=== PATIENT | female | born 1995 | race Caucasian/White ===

== ENCOUNTER 2019-11-02 09:58 | Emergency (ER) | payer SELFPAY ==
[2019-11-02] MEDS ORDERED: Bacitracin Oint 1 GM U/D Packet TOP ONE (10:21)
[2019-11-02] MEDS ORDERED: Lidocaine 1% 10 ML MDV INJECT ONE (10:21)
--- NOTE | 2019-11-02 10:21 | EDM.PDOC ---
ED HPI GENERAL MEDICAL PROBLEM - General Chief Complaint: Upper Extremity Injury/Pain Stated Complaint: RT HAND INJURY;FINGERS Time Seen by Provider: 11/02/19 10:09 Source of Information: Reports: Patient History Limitations: Reports: No Limitations - History of Present Illness INITIAL COMMENTS - FREE TEXT/NARRATIVE: HISTORY AND PHYSICAL: History of present illness: Patient is a 23-year-old female who presents to the emergency room with complaints of a laceration across her right hand of the second, third and fourth digits. She states last evening she was washing dishes around 10pm and a steak knife had cut her fingers. She "wrapped them up" but did not look at the extent of the laceration. This morning she was encouraged to come to the emergency room as she did have adipose tissue exposed and concerned she needs sutures. Tdap is UTD. Review of systems: As per history of present illness and below otherwise all systems reviewed and negative. Past medical history: As per history of present illness and as reviewed below otherwise noncontributory. Surgical history: As per history of present illness and as reviewed below otherwise noncontributory. Social history: See social history for further information Family history: As per history of present illness and as reviewed below otherwise noncontributory. Physical exam: General: Well-developed and well-nourished 23-year-old female. Alert and oriented. Nontoxic-appearing and in no acute distress. HEENT: Atraumatic, normocephalic, pupils equal and reactive bilaterally, negative for conjunctival pallor or scleral icterus, mucous membranes moist, TMs normal bilaterally, throat clear, neck supple, nontender, trachea midline. No drooling or trismus noted. No meningeal signs. No hot potato voice noted. Lungs: Clear to auscultation, breath sounds equal bilaterally, chest nontender. Heart: S1S2, regular rate and rhythm without overt murmur Abdomen: Soft, nondistended, nontender. Negative for masses or hepatosplenomegaly. Negative for costovertebral tenderness. Pelvis: Stable nontender. Skin/Extremity: 2.5 cm across the MIP joint of right 2nd digit with exposed adipose tissue. Unable to flex the finger downward fully; suspected tendon injury. 1.5 cm laceration across the left 3rd digit with partial adipose tissue exposure, good flexion and extension of the finger. 1 cm laceration across the medial 4th digit Remaining skin is intact, warm, dry. No lesions or rashes noted. Strong radial pulses with good cap refill. Neurovascular unremarkable. Neuro: Awake, alert, oriented. Cranial nerves II through XII unremarkable. Cerebellum unremarkable. Motor and sensory unremarkable throughout. Exam nonfocal. Notes: Patient states that she was doing dishes around 10-12 PM last night. Lacerations does appear older, typically do not close these but due to deepth and severity of lacerations they were thoroughly irrigated to ensure there are clean. 1% lidocaine was used to anesthetize the area. Chlorahexadin and thorough irrigation was completed. Usual and customary procedures were followed for suture placement. 4-0 nylon, #6 interrupted sutures were placed on the second digit, #2 interrupted sutures placed on third digit. Wound care/ bacitracin placed on the fourth digit. Patient's tetanus is up-to-date. Fiberglass splint was applied from fingertip to below wrist in a neutral position. Dr Moy, Hand Surgeon on-call at [facility] in [place], was consulted on this case. He is aware of the patient's case and will see the patient today in his office today at 3:30 PM or be seen on Thursday. The option was given to the patient for either appointment, they would like to follow-up today. We did call and give patient information to their office. Patient was given follow-up information. Supportive care measures were reviewed and discussed. Voices understanding and is agreeable to plan of care. Denies any further questions or concerns at this time. Diagnostics: None Therapeutics: Lidocaine, Bacitracin, dressing, splint Prescription: Keflex Tramadol Impression: Flexor Tendon Injury Laceration Plan: 1. Keep the area clean and dry. 2. Tylenol and/or ibuprofen as needed for pain management. 3. Please follow-up with Hand Surgeon, Dr Moy at [facility] today at 3:30pm. 4. Return to the ED as needed and as discussed. Definitive disposition and diagnosis as appropriate pending reevaluation and review of above. laceration to index, middle & ring finger Pain Score (Numeric/FACES): 10 - Related Data Allergies Allergy/AdvReac Type Severity Reaction Status Date / Time No Known Allergies Allergy Verified 11/02/19 10:16 Home Meds: Home Meds . [No Known Home Meds] 11/02/19 [History] Past Medical History - Past Health History Medical/Surgical History: Denies Medical/Surgical History Social & Family History - Family History Endocrine/Metabolic: Reports: Diabetes, Type I - Tobacco Use Smoking Status *Q: Never Smoker - Recreational Drug Use Recreational Drug Use: No Review of Systems - Review of Systems Review Of Systems: Comprehensive ROS is negative, except as noted in HPI. ED EXAM, GENERAL - Physical Exam Exam: See Below (See dictation) ED TRAUMA EXTREMITY PROCEDURES - Laceration/Wound Repair right 2nd digit Lac/Wound Length In cm: 2.5 Appearance: Subcutaneous, Irregular, Mildly Contaminated Distal NVT: Neuro & Vascular Intact, Other (Suspected tendon injury: Dr Moy to follow-up) Anesthetic Type: Local Local Anesthesia - Lidocaine (Xylocaine): 1% Plain Local Anesthetic Volume: 3cc Skin Prep: Chlorhexidine (Hibiciens), Saline, Sterile Drape Exploration/Debridement/Repair: Wound Explored, In a Bloodless Field, Explored to Base, No Foreign Material Found Closed With: Sutures Suture Size: 4-0 (6) Suture Type: Nylon Drain Placement: No Sterile Dressing Applied: Provider Tetanus Status Addressed: Yes Complications: No Progress/Comments: Going to hand surgeon in [facility] for further care/management right 3rd digit Lac/Wound Length In cm: 1.5 Appearance: Subcutaneous, Linear, Irregular, Mildly Contaminated Distal NVT: Neuro & Vascular Intact, No Tendon Injury Anesthetic Type: Local Local Anesthesia - Lidocaine (Xylocaine): 1% Plain Local Anesthetic Volume: 2cc Skin Prep: Chlorhexidine (Hibiciens), Saline, Sterile Drape Exploration/Debridement/Repair: Wound Explored, In a Bloodless Field, Explored to Base, No Foreign Material Found Suture Size: 4-0 # of Sutures: 2 Suture Type: Nylon Drain Placement: No Sterile Dressing Applied: Provider Tetanus Status Addressed: Yes Complications: No 4th digit right Lac/Wound Length In cm: 1 Appearance: Superficial, Linear Distal NVT: Neuro & Vascular Intact, No Tendon Injury Skin Prep: Chlorhexidine (Hibiciens), Saline Closed With: Steri-Strips Course - Vital Signs Last Recorded V/S: Last Vital Signs Temp 97.2 F 11/02/19 10:12 Pulse 88 11/02/19 10:12 Resp 18 11/02/19 10:12 BP 104/68 11/02/19 10:12 Pulse Ox 98 11/02/19 10:12 - Orders/Labs/Meds Orders: Active Orders 24 hr Category Date Time Status DME for Discharge [COMM] Stat Oth 11/02/19 11:40 Ordered Meds: Medications Discontinued Medications Generic Name Dose Route Start Last Admin Trade Name Scott PRN Reason Stop Dose Admin Bacitracin 1 dose 11/02/19 10:21 11/02/19 11:38 Bacitracin Oint 1 Gm TOP 11/02/19 10:22 1 dose ONETIME ONE Administration Lidocaine HCl 10 ml 11/02/19 10:21 11/02/19 10:30 Xylocaine 1% INJECT 11/02/19 10:22 Not Given ONETIME ONE Lidocaine HCl Confirm 11/02/19 10:28 11/02/19 10:31 Xylocaine-Mpf 1% Administered 11/02/19 10:29 Not Given Dose 10 ml .ROUTE .STK-MED ONE Lidocaine HCl 10 ml 11/02/19 10:30 11/02/19 11:38 Xylocaine-Mpf 1% INJECT 11/02/19 10:31 10 ml ONETIME ONE Administration Departure - Departure Time of Disposition: 11:11 Disposition: Home, Self-Care 01 Clinical Impression: Laceration Finger, open wounds with tendon injury Qualifiers: Encounter type: initial encounter Qualified Code(s): S61.209A - Unspecified open wound of unspecified finger without damage to nail, initial encounter - Discharge Information Instructions: Laceration Care, Adult, Wound Care, Adult Referrals: PCP,None [Primary Care Provider] - Forms: ED Department Discharge Additional Instructions: The following information is given to patients seen in the emergency department who are being discharged to home. This information is to outline your options for follow-up care. We provide all patients seen in our emergency department with a follow-up referral. The need for follow-up, as well as the timing and circumstances, are variable depending upon the specifics of your emergency department visit. If you don't have a primary care physician on staff, we will provide you with a referral. We always advise you to contact your personal physician following an emergency department visit to inform them of the circumstance of the visit and for follow-up with them and/or the need for any referrals to a consulting specialist. The emergency department will also refer you to a specialist when appropriate. This referral assures that you have the opportunity for follow-up care with a specialist. All of these measure are taken in an effort to provide you with optimal care, which includes your follow-up. Under all circumstances we always encourage you to contact your private physician who remains a resource for coordinating your care. When calling for follow-up care, please make the office aware that this follow-up is from your recent emergency room visit. If for any reason you are refused follow-up, please contact the [facility] Emergency Department at and asked to speak to the emergency department charge nurse. [facility] [address] [place] [address] [id number] [facility] Hand Surgeon [address] [place] [address] 1. Keep the area clean and dry. Keep splint on. 2. Tylenol and/or ibuprofen as needed for pain management. 3. Please follow-up with Hand Surgeon, Dr Moy at [facility] in [place] today at 3:00pm. He is expecting you for re-evaluation. His office is located [address] in [place], [place]. Their phone number is [phone]. 4. Return to the ED as needed and as discussed. Sepsis Event Note - Evaluation Sepsis Screening Result: No Definite Risk - Focused Exam Vital Signs: Vital Signs Temp Pulse Resp BP Pulse Ox 11/02/19 10:12 97.2 F 88 18 104/68 98 Date Exam was Performed: 11/02/19 Time Exam was Performed: 11:40 - My Orders Last 24 Hours: My Active Orders 11/02/19 11:40 DME for Discharge [COMM] Stat - Assessment/Plan Last 24 Hours: My Active Orders 11/02/19 11:40 DME for Discharge [COMM] Stat
== END 2019-11-02 11:43 | disposition home or self-care (01) ==
LOC: MW.ED 09:58
DX: S61.411A Laceration without foreign body of right hand, initial encounter (principal); W26.0XXA Contact with knife, initial encounter; Y93.G1 Activity, food preparation and clean up
CPT/HCPCS: 12002; 99282; J2001; 12001; 99283

== ENCOUNTER 2019-11-20 03:53 | Emergency (ER) | payer SELFPAY ==
[2019-11-20] MEDS ORDERED: Ketorolac 60 MG/2 ML SDV IM ONE (04:07)
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
[2019-11-20] MEDS ORDERED: Acetaminophen/HYDROcodone 325-5 MG Tab PO ONE (05:25)
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
== END 2019-11-20 06:10 | disposition home or self-care (01) ==
LOC: MW.ED 03:53
DX: S42.021A Displaced fracture of shaft of right clavicle, initial encounter for closed fracture (principal); Y04.2XXA Assault by strike against or bumped into by another person, initial encounter
CPT/HCPCS: 73030; 96372; 99284; J1885

== ENCOUNTER 2022-08-11 08:43 | Emergency (ER) | payer SELFPAY ==
[2022-08-11] MEDS ORDERED: Diphtheria,Pertussis(Acell),Tetanus Vaccine 0.5 ML Syringe IM ONE (09:03)
[2022-08-11] MEDS ORDERED: Magnesium Sulfate/Water 2 GM in Premix Bag 1 BAG IV ONE (09:25)
[2022-08-11] MEDS ORDERED: Lactated Ringers 1,000 ML IV STA ×2 (09:25→10:41)
[2022-08-11 10:00] LABS: ACETAMINOPHEN <2.0 ug/mL; BLOOD UREA NITROGEN,BUN 6 mg/dL (7.0-18.0); CARBON DIOXIDE,CO2 17.1 mmol/L (21.0-32.0); CHLORIDE,CL 104 mmol/L (98-107); GLUCOSE RANDOM 107 mg/dL (74-106); POTASSIUM,K 3.2 mmol/L (3.5-5.1); SODIUM,NA 142 mmol/L (136-145)
[2022-08-11 10:06] LABS: ESTIMATED GFR 90 mL/min (>60)
[2022-08-11] MEDS ORDERED: Potassium Chloride 10% 20 MEQ/15 ML Soln 30 ML UD Cup PO ONE (10:39)
[2022-08-11 14:25] LABS: ACETAMINOPHEN <2.0 ug/mL; BLOOD UREA NITROGEN,BUN 5 mg/dL (7.0-18.0); CARBON DIOXIDE,CO2 25.3 mmol/L (21.0-32.0); CHLORIDE,CL 106 mmol/L (98-107); GLUCOSE RANDOM 80 mg/dL (74-106); POTASSIUM,K 5.1 mmol/L (3.5-5.1); SODIUM,NA 141 mmol/L (136-145)
[2022-08-11 14:34] LABS: ESTIMATED GFR 126 mL/min (>60)
[2022-08-11] MEDS ORDERED: ACETYLCYSTEINE IV STA ×2 (14:46)
[2022-08-11] MEDS ORDERED: WATER IV STA ×2 (14:46)
[2022-08-11] MEDS ORDERED: DEXTROSE 5% IV STA ×2 (14:46)
[2022-08-11] MEDS ORDERED: WATER IV ONE ×2 (14:47)
[2022-08-11] MEDS ORDERED: ACETYLCYSTEINE IV ONE ×2 (14:47)
[2022-08-11] MEDS ORDERED: DEXTROSE 5% IV ONE ×2 (14:47)
== END 2022-08-11 16:52 | disposition left against medical advice (07) ==
LOC: MW.ED 08:43
DX: T39.1X2A Poisoning by 4-Aminophenol derivatives, intentional self-harm, initial encounter (principal); T39.312A Poisoning by propionic acid derivatives, intentional self-harm, initial encounter; M62.82 Rhabdomyolysis; R45.851 Suicidal ideations; Z20.822 Contact with and (suspected) exposure to COVID-19
CPT/HCPCS: 36415; 70450; 73080; 73502; 73610; 73630; 80053; 80143; 80179; 80305; 80307; 81001; 82140; 82550; 82803; 83605; 83735; 84443; 84484; 84703; 85025; 85610; 87635; 90471; 90715; 96361; 96365; 96366; 99285; A9270; J3475; J7120; 93010; 99291; 99292; U0002

== ENCOUNTER 2022-08-13 15:53 | Emergency (ER) | payer SELFPAY ==
[2022-08-13] MEDS ORDERED: Sodium Chloride 0.9% 1,000 ML IV ONE (17:01)
[2022-08-13 18:14] LABS: CORONAVIRUS COVID-19 NAA NEGATIVE (NEGATIVE); INFLUENZA A NAA NEGATIVE (NEGATIVE); INFLUENZA B NAA NEGATIVE (NEGATIVE)
[2022-08-13 18:20] LABS: CARBON DIOXIDE,CO2 27.5 mmol/L (21.0-32.0); POTASSIUM,K 3.6 mmol/L (3.5-5.1)
[2022-08-13] MEDS ORDERED: Ketorolac 30 MG/ML SDV IVPUSH ONE (18:41)
== END 2022-08-13 18:56 | disposition home or self-care (01) ==
LOC: MW.ED 15:53
DX: R53.81 Other malaise (principal); Z20.822 Contact with and (suspected) exposure to COVID-19
CPT/HCPCS: 0240U; 36415; 80053; 81001; 82550; 85025; 87651; 96361; 96374; 99283; J1885; J7030